=== PATIENT | male | born 1980 | race Caucasian/White ===

== ENCOUNTER 2020-12-12 10:12 | Day surgery (SDC) | payer BC, OTHER ==
[2020-12-07 14:35] VITALS: BMI 29.0
[2020-12-12] MEDS ORDERED: PROPOFOL 20 ML ONE ×2 (11:41)
[2020-12-12] MEDS ORDERED: SUCCINYLCHOLINE CHLORIDE 200 MG/10 ML SYRINGE ONE (11:41)
[2020-12-12] MEDS ORDERED: MIDAZOLAM HCL 2 MG/2 ML SINGLE DOSE VIAL ONE (11:42)
[2020-12-12] MEDS ORDERED: MORPHINE SULFATE 10 MG/1 ML *VIAL ONE (12:30)
[2020-12-12] MEDS ORDERED: LIDOCAINE HCL/PF 2% SDV 5ML VIAL ONE (12:39)
[2020-12-12] MEDS ORDERED: LIDOCAINE HCL 2% JELLY (5 ML/TUBE) ONE (12:41)
[2020-12-12] MEDS ORDERED: ONDANSETRON 4 MG/2 ML VIAL ONE (12:44)
[2020-12-12] MEDS ORDERED: DEXAMETHASONE SOD PHOSPHATE 4 MG/1 ML VIAL ONE (12:44)
[2020-12-12] MEDS ORDERED: KETOROLAC TROMETHAMINE 30 MG/1 ML VIAL ONE (12:44)
[2020-12-12] MEDS ORDERED: ceFAZolin SODIUM 1 GM VIAL ONE (12:45)
[2020-12-12] MEDS ORDERED: BUPIVACAINE HCL/PF 0.5% (5 MG/ML) 30 ML VIAL IJ ONE (12:55)
[2020-12-12] MEDS ORDERED: PROMETHAZINE HCL 25 MG/1 ML VIAL IVPB PRN (13:22)
[2020-12-12] MEDS ORDERED: ONDANSETRON 4 MG/2 ML VIAL IVPUSH PRN (13:22)
[2020-12-12] MEDS ORDERED: oxyCODONE HCL 5 MG TABLET PO PRN ×2 (13:22)
[2020-12-12 13:40] VITALS: TEMP 97.1
[2020-12-12 14:49] VITALS: BP 133/72; PULSE 56
== END 2020-12-12 14:45 | disposition home or self-care (01) ==
LOC: FASU 10:12
PROVIDERS: ATTEND Orthopaedic Surgery
PROC: 0SBD4ZZ Excision of Left Knee Joint, Percutaneous Endoscopic Approach (ICD-10-PCS; principal; 2020-12-12 12:55)
DX: S83.242A Other tear of medial meniscus, current injury, left knee, initial encounter (principal); M67.52 Plica syndrome, left knee; M94.262 Chondromalacia, left knee; X58.XXXA Exposure to other specified factors, initial encounter; Y92.9 Unspecified place or not applicable; Y93.9 Activity, unspecified
CPT/HCPCS: 94760; 97116-GP